=== PATIENT | female | born 1965 | race Caucasian/White ===

== ENCOUNTER 2019-09-27 04:44 | Emergency (ER) | payer OTHER ==
[2019-09-27] MEDS ORDERED: MORPHINE SULFATE 10 MG/ML INJ IV ONE (05:03)
[2019-09-27] MEDS ORDERED: CLINDAMYCIN HCL 150 MG CAPSULE PO ONE (05:04)
--- NOTE | 2019-09-27 05:06 | ER Document Report ---
ED General - General Chief Complaint: Near Syncope Stated Complaint: SYNCOPE,DIZZINESS Time Seen by Provider: 09/27/19 04:55 Primary Care Provider: MELBA LOZANO MD [Primary Care Provider] - Follow up as needed Notes: Patient is a 54-year-old female that comes emergency department with 2 complaints. First complaint is dental pain that started yesterday, today the pain became much worse in her right upper posterior molar area, she states that she started having swelling of the face and increased pain tonight. She states that she got out of bed because of the pain, saw herself in the mirror, started rinsing her mouth out with water, then suddenly started feeling lightheaded, vision started to blur, her ear started to ring, and she felt like she was going to pass out. She states she got down on the floor and laid there and then symptoms essentially passed. She came by EMS, EMS reports initially she was complaining of feeling lightheaded, she received 500 cc bolus of IV fluids, she currently has no complaints of dizziness. She denies chest pain, shortness of breath, history of passing out. Past medical history of hyperlipidemia, GERD, hysterectomy, tonsillectomy. She states she took one half of a tramadol just after midnight for the pain but this did not help significantly. - Related Data Allergies/Adverse Reactions: naproxen sodium [From Anaprox] Allergy (Verified 10/27/12 21:13) Home Medications: tramdol Past Medical History - General Information source: Patient - Social History Smoking Status: Never Smoker Frequency of alcohol use: None Drug Abuse: None Lives with: Family Family History: Reviewed & Not Pertinent Patient has homicidal ideation: No - Past Medical History Cardiac Medical History: Reports: Hx Hypercholesterolemia GI Medical History: Reports: Hx Gastroesophageal Reflux Disease Past Surgical History: Reports: Hx Hysterectomy, Hx Tonsillectomy - Immunizations Hx Diphtheria, Pertussis, Tetanus Vaccination: Yes - 10/27/12 Review of Systems - Review of Systems Constitutional: No symptoms reported EENT: See HPI Cardiovascular: See HPI Respiratory: No symptoms reported Gastrointestinal: No symptoms reported Genitourinary: No symptoms reported Female Genitourinary: No symptoms reported Musculoskeletal: No symptoms reported Skin: No symptoms reported Hematologic/Lymphatic: No symptoms reported Neurological/Psychological: See HPI Physical Exam - Vital signs Vitals: Temp Pulse Resp BP Pulse Ox 97.9 F 78 13 128/72 H 97 09/27/19 04:54 09/27/19 04:54 09/27/19 04:54 09/27/19 04:54 09/27/19 04:54 - Notes Notes: GENERAL: Alert, interacts well. No acute distress. HEAD: Normocephalic, atraumatic. EYES: Pupils equal, round, and reactive to light. Extraocular movements intact. ENT: Oral mucosa moist, tongue midline. Oropharynx unremarkable. Airway patent. Nares patent, sinuses non-tender, ear canals unremarkable, TM's intact. Patient has soft tissue swelling on the right side of the face extending up to the zygomatic area and down towards the upper jawline. Dental exam shows dental caries in the posterior aspect of the upper jawline with noted molar tenderness and surrounding erythema of the gumline. There is no induration or fluctuance noted, oral pharyngeal exam otherwise unremarkable. No evidence of Ty's angina. NECK: Full range of motion. Supple. Trachea midline. No lymphadenopathy. LUNGS: Clear to auscultation bilaterally, no wheezes, rales, or rhonchi. No respiratory distress. Non-tender chest wall. HEART: Regular rate and rhythm. No murmur ABDOMEN: Soft, non-tender. Non-distended. EXTREMITIES: Moves all 4 extremities spontaneously. No edema, normal radial and dorsalis pedis pulses bilaterally. No cyanosis. BACK: no cervical, thoracic, lumbar midline tenderness. No saddle anesthesia, normal distal neurovascular exam. Moves all extremities in full range of motion. NEUROLOGICAL: Alert and oriented x3. Normal speech. Cranial nerves II through XII grossly intact. Strength 5/5 in all extremities. PSYCH: Normal affect, normal mood. SKIN: Warm, dry, normal turgor. No rashes or lesions noted. Course - Re-evaluation Re-evalutation: Patient with an obvious dental infection although this is new with development over the past 48 hours, swelling just started. Based on this and her evaluation I do have a low suspicion of dental abscess. She was started on clindamycin and on reevaluation her symptoms are actually slightly improved with slight improvement of the swelling. Patient did have what sounds like a near syncopal episode as well after she noticed the swelling and was attempting to rinse out her mouth. Patient did not have chest pain, palpitations, and did not pass out. She has no injuries. Symptoms have resolved, she has no current symptoms other than the pain along her face/jaw. EKG unremarkable, CBC and chemistry unremarkable, orthostatic vital signs performed and are unremarkable. Patient will be treated with antibiotics, she states she has a dental follow-up within 1 week for treatment of this. She states she will call them today. I discussed return precautions in regards to the dental infection and in regards to the near-syncope. Patient states understanding and agreement. Stable and well-appearing at time of discharge. - Vital Signs Vital signs: Temp Pulse Resp BP Pulse Ox 97.9 F 76 13 133/65 H 97 09/27/19 04:54 09/27/19 07:08 09/27/19 04:54 09/27/19 07:08 09/27/19 04:54 - Laboratory Result Diagrams: 09/27/19 05:20 09/27/19 05:20 Laboratory results interpreted by me: 09/27/19 05:20 Glucose 114 H - EKG Interpretation by Me Additional EKG results interpreted by me: EKG shows sinus rhythm at a rate of 65, QTc 441, normal axis, no T wave inversions or ST segment changes in consecutive leads. Machine reads as normal. Discharge - Discharge Clinical Impression: Dental infection, Near syncope Condition: Stable Disposition: HOME, SELF-CARE Instructions: Oral Narcotic Medication ([facility]) Additional Instructions: Your evaluation is consistent with dental infection. No other concerning findings are noted at this time. Please take the clindamycin as prescribed to completion. I do recommend that you take an [id number] probiotic while you are taking this. Please follow closely with your dentist for additional management. Return for any concerning or worsening symptoms, see additional instructions listed below. Syncope (fainting or near-fainting) can occur from many different health problems. Or it can be a simple fainting spell requiring no treatment. It is safe for you to go home, but further evaluation will likely be necessary. The warning signs of an impending faint include: dizziness, lightheadedness, nausea, hot flashes, tingling, and weakness. If this happens, lay down and put your feet up, then wait until all of these symptoms have passed before standing up again. If these episodes become recurrent, or if you develop chest pain, heart palpitations, mental confusion, blurred vision, or headache, then you should call the physician, or go to the emergency room. Prescriptions: Clindamycin HCl [Cleocin 150 mg Capsule] 150 mg PO Q6 #56 capsule Forms: Return to Work Referrals: MELBA LOZANO MD [Primary Care Provider] - Follow up as needed
[2019-09-27 05:36] LABS: ABSOLUTE EOSINOPHILS # (AUTO) 0.1 10^3/uL (0.0-0.6); ABSOLUTE LYMPHOCYTES (AUTO) 1.2 10^3/uL (0.5-4.7); ABSOLUTE MONOCYTES (AUTO) 0.7 10^3/uL (0.1-1.4); ABSOLUTE NEUT (AUTO) 6.1 10^3/uL (1.7-8.2); BASOPHILS % (AUTO) 0.4 % (0-2); EOSINOPHILS % (AUTO) 1.2 % (0-6); HEMATOCRIT 39.7 % (36.0-47.0); HEMOGLOBIN 13.9 g/dL (12.0-15.5); LYMPHOCYTES % (AUTO) 15.4 % (13-45); MEAN CORPUSCULAR HEMOGLOBIN 31.4 pg (27.0-33.4); MEAN CORPUSCULAR HGB CONC 34.9 g/dL (32.0-36.0); MEAN CORPUSCULAR VOLUME 90 fl (80-97); MONOCYTES % (AUTO) 8.1 % (3-13); PLATELET COUNT 219 10^3/uL (150-450); RED BLOOD COUNT 4.43 10^6/uL (3.72-5.28); RED CELL DISTRIBUTION WIDTH 13.6 % (11.5-14.0); SEGMENTED NEUTROPHILS % (AUTO) 74.9 % (42-78); TOTAL CELLS COUNTED % (AUTO) 100 %; WHITE BLOOD COUNT 8.1 10^3/uL (4.0-10.5)
[2019-09-27 05:59] LABS: ANION GAP 5 (5-19); BLOOD UREA NITROGEN 15 mg/dL (7-20); CALCIUM 9.3 mg/dL (8.4-10.2); CARBON DIOXIDE 30 mmol/L (22-30); CHLORIDE 103 mmol/L (98-107); GLUCOSE 114 mg/dL (75-110); POTASSIUM 4.2 mmol/L (3.6-5.0)
[2019-09-27] MEDS ORDERED: HYDROCODONE/ACETAMINOPHEN 5-325 MG (6 TAB/ER DISP) PO PRN (06:48)
[2019-09-27 07:28] VITALS: BP 143/76
--- NOTE | 2019-09-27 09:16 | EKG REPORT ---
SEVERITY:- NORMAL ECG - SINUS RHYTHM : Confirmed by: Cindy Mccoy 27-Sep-2019 09:15:29
== END 2019-09-27 07:35 | disposition home or self-care (01) ==
LOC: ER 04:44
DX: K04.7 Periapical abscess without sinus (principal); R55 Syncope and collapse; K08.89 Other specified disorders of teeth and supporting structures; Z79.899 Other long term (current) drug therapy; Z88.8 Allergy status to other drugs, medicaments and biological substances
CPT/HCPCS: 93005; 99284; 36415; 85025; 80048; 93010; J2270